=== PATIENT | male | born 1940 | race Caucasian/White ===

== ENCOUNTER 2021-05-18 09:21 | Emergency (ER) | payer MEDICARE, SELFPAY ==
[2021-05-18 09:42] VITALS: BP 182/83; PULSE 54; RESP 16; TEMP 36.8; O2SAT 100; BMI 25.8
--- NOTE | 2021-05-18 09:51 | DI.CT.S_ITS ---
PROCEDURE: CT HEAD/BRAIN WO CON INDICATIONS: double vision X 5 days TECHNIQUE: Noncontrast 4.5 mm thick angled axial sections acquired from the foramen magnum to the vertex, with coronal and sagittal reformats. For radiation dose reduction, the following was used: automated exposure control, adjustment of mA and/or kV according to patient size. COMPARISON: None. FINDINGS: Image quality: Excellent. CSF spaces: Basal cisterns are patent. No extra-axial fluid collections. The ventricles are symmetric in size and shape. Brain: No intracranial bleeds or masses. There is moderate cerebral volume loss for age, with resultant ventricular and sulcal prominence. There are moderate periventricular and deep white matter chronic small vessel ischemic changes. There is intracranial internal carotid artery atherosclerosis. Skull and face: Calvarium and visualized facial bones appear intact, without suspicious lesions. Sinuses: Visualized sinuses and mastoids are clear. IMPRESSION: 1. No acute intracranial abnormalities. A cause for double vision is not identified. Consider MRI and MRA for follow-up evaluation. 2. Cerebral volume loss and chronic microvascular ischemic changes. Dictated by: Kevin Saenz M.D. on 05/18/2021 at 10:48 Approved by: Kevin Saenz M.D. on 05/18/2021 at 10:56
--- NOTE | 2021-05-18 09:52 | DI.CT.S_ITS ---
PROCEDURE: CT ANGIO HEAD AND NECK INDICATIONS: vertigo TECHNIQUE: After the administration of intravenous contrast, 1 mm thick sections acquired from the aortic arch through the [place]. Post-contrast 4.5 mm thick sections then re-acquired from the foramen magnum to the vertex. 3-dimensional rlcxihm-jmfsdraqn-rzlrwakeyr (MIP) and/or volume rendering reformats were acquired of the central intracranial vasculature and neck separately. COMPARISON: [facility], CT, CT HEAD/BRAIN WO CON, 05/18/2021, 10:24. FINDINGS: Image quality: Excellent. BRAIN: CSF spaces: Ventricles are normal in size and shape. Basal cisterns are patent. No extra-axial fluid collections. Brain: No midline shift. No intracranial bleeds or masses. Weber-white matter interface appears intact. There is diffuse cerebral volume loss. There are periventricular and subcortical white matter chronic microvascular ischemic changes. Skull and face: Calvarium and facial bones appear intact, without suspicious lesions. Orbits appear normal. Sinuses: Sinuses and mastoids are clear. HEAD CT ANGIOGRAPHY: Anterior circulation: Intracranial internal carotid arteries are normal in flow. Atherosclerotic calcifications noted in the cavernous and clinoid segments of the internal carotid arteries bilaterally which causes mild stenosis of the vessels. The flow within the paired anterior cerebral arteries is normal and symmetric. The flow within the middle cerebral arteries is normal and symmetric. 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 The anterior communicating artery is seen. No aneurysms are seen. Posterior circulation: Visualized portions of the vertebral arteries demonstrate normal caliber, and join to form a normal appearing basilar artery. Flow within the posterior cerebral arteries is normal and symmetric. No aneurysms are seen. Dural sinuses demonstrate normal postcontrast enhancement. NECK CT ANGIOGRAPHY: Carotid system: The great vessels demonstrate bovine variant anatomy as they arise from the aortic arch. The origins of the common carotid arteries appear patent. The common carotid arteries demonstrate normal caliber and courses. Atherosclerotic calcifications noted in the origins of the internal carotid arteries bilaterally which causes less than 50% stenosis of the vessels Posterior circulation: Atherosclerotic plaque noted in the origins of the vertebral arteries which causes mild narrowing of the vessels. There is normal flow in the vertebral arteries.. The more superior extracranial portions of both vertebral arteries also demonstrate normal courses and calibers. They join to form a normal appearing basilar artery. Soft tissues: Visualized neck soft tissues demonstrate no suspicious abnormalities. Bones: No suspicious bony lesions. Spine degenerative disc disease and facet arthropathy. Visualized cervical spine appears normally aligned. IMPRESSION: 1. No acute intracranial disease process. 2. No large vessel occlusion, hemodynamically significant vascular stenosis, vascular dissection or aneurysm. Any quantitative measurements of stenosis were performed using NASCET criteria. Dictated by: Danika Mccarthy MD, PhD on 05/18/2021 at 10:54 Approved by: Danika Mccarthy MD, PhD on 05/18/2021 at 11:03
--- NOTE | 2021-05-18 09:55 | PC.NURSE ---
Pt has an area above left eye swollen and has a rash. Pt states pain is worse behind left eye.
[2021-05-18] MEDS: SODIUM CHLORIDE 0.9% 1,000 ML 150 ML IV (09:58)
[2021-05-18 10:10] LABS: Add Manual Diff / Slide Review NO; Basophils Absolute Auto 0 /uL (0-100); Basophils Percent Auto 0.5 % (0-2); Eosinophils Absolute Auto 100 /uL (0-450); Eosinophils Percent Auto 1.4 % (2-4); Hematocrit 37.1 % (41-53); Hemoglobin 12.6 g/dL (13.5-17.5); Lymphocytes Absolute Auto 1200 /uL (1100-4500); Lymphocytes Percent Auto 22.8 % (25-40); Mean Corpuscular Hemoglobin 27.3 PG (26-34); Mean Corpuscular Volume 80.2 fL (80-100); Monocytes Absolute Auto 600 /uL (0-900); Monocytes Percent Auto 10.7 % (3-14); Neutrophils Absolute Auto 3400 /uL (1500-7000); Neutrophils Percent Auto 64.6 % (50-75); Platelet Count 223 X10^3/uL (150-400); Red Blood Cell Count 4.62 X10^6/uL (4.5-5.9); Red Cell Distribution Width 15.9 % (11.6-14.8); White Blood Cell Count 5.2 X10^3/uL (4.5-11.0)
[2021-05-18 10:22] LABS: Alanine Aminotransferase 29 IU/L (<50); Albumin 3.9 g/dL (3.5-5.0); Albumin Globulin Ratio 1.3 (1.0-2.8); Alkaline Phosphatase 91 U/L (38-126); Aspartate Aminotransferase 47 IU/L (17-59); BUN Creatinine Ratio 28.4 (6-22); Bilirubin Total 0.8 mg/dL (0.2-1.3); Blood Urea Nitrogen 19 mg/dL (9-20); Calcium 8.9 mg/dL (8.4-10.2); Carbon Dioxide 27 mmol/L (22-32); Chloride 98 mmol/L (98-107); Estimated Glomerular Filt Rate > 60.0 mL/min (>60); Globulin 3.1 g/dL (1.7-4.1); Glucose 115 mg/dL (80-110); HEMOLYSIS < 15 (0-50); Potassium 3.7 mmol/L (3.4-5.1); Sodium 132 mmol/L (137-145)
--- NOTE | 2021-05-18 12:57 | ED_ITS ---
HPI - Headache General Chief Complaint: Headache Stated Complaint: Headache/double vision 5 days,swollen eye Time Seen by Provider: 05/18/21 09:51 Mode of arrival: Ambulatory Limitations: no limitations History of Present Illness HPI Narrative: 81-year-old gentleman with no significant medical problems lives on [facility] much of the [place] presents after 5 days of left eye rash with concurrent double vision. He describes moderate headache, no fevers no significant malaise. The double vision is benign ocular and not associated with other visual complaints. He has had no recent chest pain, dyspnea, cough, abdominal pain, dysuria, diarrhea or constipation. He notes specifically he has had chickenpox and he did receive zoster vaccination but it has been a number of years since his vaccination Related Data Previous Rx's Medication Instructions Recorded oxycodone-acetaminophen 5 mg-325 1 tab PO Q6H PRN #12 tab 05/18/21 mg tablet valacyclovir 1 gram tablet 1,000 mg PO TID #21 tab 05/18/21 Allergies Allergy/AdvReac Type Severity Reaction Status Date / Time No Known Drug Allergies Allergy Verified 05/18/21 09:46 Review of Systems Review of Systems Narrative: Remainder of complete review of systems is otherwise unremarkable except for that included in the HPI. Patient History Medical History Zoster Social History Smoking Status: Former smoker Smoking Status: Former smoker alcohol intake frequency: 0-2 drinks per day Substance Use Type: does not use Exam Narrative Exam Narrative: General: Healthy appearing, in no acute distress. Able to give a complete and coherent history. Well-nourished well-developed HEENT: Moist mucous membranes, normal sclera with reactive pupils, no corneal abnormalities. He does have a rash in a V1 distribution on the left side with mild edema and fullness of the left brow and left eyelid. Erythematous base fascicular lesions and crusting lesions are appreciated. The rash does not extend to the tip of his nose and does not involve the actual eyelid itself. Neck: No JVD, supple Respiratory: Lungs are clear to auscultation, no wheezing no rales no rhonchi. Full and symmetrical air movement Cardiac: Regular rate and rhythm no murmurs no bruits Abdomen: Soft, nontender, good bowel tones, no flank pain Skin: Warm and dry, no rashes Neurologic: Grossly neurologically intact with no obvious asymmetries or abnormalities Extremities: No trauma, well perfused Psych: Cooperative, appropriate insight and affect Initial Vital Signs Initial Vital Signs: Vital Signs Temperature 98.2 F 05/18/21 09:42 Pulse Rate 54 L 05/18/21 09:42 Respiratory Rate 16 05/18/21 09:42 Blood Pressure 182/83 H 05/18/21 09:42 Pulse Oximetry 100 05/18/21 09:42 Course Orders Ordered: Discontinued Medications Acetaminophen (Acetaminophen 325 Mg Tablet) 325 mg PO NOW ONE Stop: 05/18/21 13:32 Last Admin: 05/18/21 13:38 Dose: 325 mg Documented by: CARLITA Acyclovir (Acyclovir 200 Mg Capsule) 800 mg PO NOW ONE Stop: 05/18/21 13:32 Last Admin: 05/18/21 13:37 Dose: 800 mg Documented by: CARLITA Sodium Chloride (Normal Saline 0.9%) 1,000 mls @ 150 mls/hr IV CONT URIEL Last Infusion: 05/18/21 14:11 Dose: 150 mls/hr Documented by: Admin: 05/18/21 09:58 Dose: 150 mls/hr Documented by: KENISHA Ibuprofen (Ibuprofen 400 Mg Tablet) 400 mg PO NOW ONE Stop: 05/18/21 13:32 Last Admin: 05/18/21 13:37 Dose: 400 mg Documented by: CARLITA Vital Signs Vital signs: Vital Signs - 8 hr 05/18/21 14:12 Pulse Rate 78 Respiratory Rate 16 Blood Pressure 208/95 H Pulse Oximetry 98 MDM - Headache Lab Data Result diagrams: 05/18/21 10:05 05/18/21 10:05 Labs: Lab Results 05/18/21 05/18/21 Range/Units 10:05 10:05 WBC 5.2 (4.5-11.0) X10^3/uL RBC 4.62 (4.5-5.9) X10^6/uL Hgb 12.6 L (13.5-17.5) g/dL Hct 37.1 L (41-53) % MCV 80.2 (80-100) fL MCH 27.3 (26-34) PG MCHC 34.0 (30-36) % RDW 15.9 H (11.6-14.8) % Plt Count 223 (150-400) X10^3/uL Neut % (Auto) 64.6 (50-75) % Lymph % (Auto) 22.8 L (25-40) % [place] % (Auto) 10.7 (3-14) % Eos % (Auto) 1.4 L (2-4) % Baso % (Auto) 0.5 (0-2) % Neut # (Auto) 3400 (3572-0330) /uL Lymph # (Auto) 1200 (2257-0626) /uL [place] # (Auto) 600 (0-900) /uL Eos # (Auto) 100 (0-450) /uL Baso # (Auto) 0 (0-100) /uL Sodium 132 L (137-145) mmol/L Potassium 3.7 (3.4-5.1) mmol/L Chloride 98 (98-107) mmol/L Carbon Dioxide 27 (22-32) mmol/L BUN 19 (9-20) mg/dL Creatinine 0.67 (0.66-1.25) mg/dL Estimated GFR > 60.0 (>60) mL/min BUN/Creatinine Ratio 28.4 H (6-22) Glucose 115 H (80-110) mg/dL Calcium 8.9 (8.4-10.2) mg/dL Total Bilirubin 0.8 (0.2-1.3) mg/dL AST 47 (17-59) IU/L ALT 29 (<50) IU/L Alkaline Phosphatase 91 (38-126) U/L Total Protein 7.0 (6.3-8.2) g/dL Albumin 3.9 (3.5-5.0) g/dL Globulin 3.1 (1.7-4.1) g/dL Albumin/Globulin Ratio 1.3 (1.0-2.8) Imaging Data CT scan - head: Radiologist's Impression: FINDINGS: Image quality: Excellent. CSF spaces: Basal cisterns are patent. No extra-axial fluid collections. The ventricles are symmetric in size and shape. Brain: No intracranial bleeds or masses. There is moderate cerebral volume loss for age, with resultant ventricular and sulcal prominence. There are moderate periventricular and deep white matter chronic small vessel ischemic changes. There is intracranial internal carotid artery atherosclerosis. Skull and face: Calvarium and visualized facial bones appear intact, without suspicious lesions. Sinuses: Visualized sinuses and mastoids are clear. IMPRESSION: 1. No acute intracranial abnormalities. A cause for double vision is not identified. Consider MRI and MRA for follow-up evaluation. 2. Cerebral volume loss and chronic microvascular ischemic changes. Dictated by: Kevin Saenz M.D. on 05/18/2021 at 10:48 CTA head and neck: Radiologist's Impression: FINDINGS: Image quality: Excellent. BRAIN: CSF spaces: Ventricles are normal in size and shape. Basal cisterns are patent. No extra-axial fluid collections. Brain: No midline shift. No intracranial bleeds or masses. Weber-white matter interface appears intact. There is diffuse cerebral volume loss. There are periventricular and subcortical white matter chronic microvascular ischemic changes. Skull and face: Calvarium and facial bones appear intact, without suspicious lesions. Orbits appear normal. Sinuses: Sinuses and mastoids are clear. HEAD CT ANGIOGRAPHY: Anterior circulation: Intracranial internal carotid arteries are normal in flow. Atherosclerotic calcifications noted in the cavernous and clinoid segments of the internal carotid arteries bilaterally which causes mild stenosis of the vessels. The flow within the paired anterior cerebral arteries is normal and symmetric. The flow within the middle cerebral arteries is normal and symmetric. 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 The anterior communicating artery is seen. No aneurysms are seen. Posterior circulation: Visualized portions of the vertebral arteries demonstrate normal caliber, and join to form a normal appearing basilar artery. Flow within the posterior cerebral arteries is normal and symmetric. No aneurysms are seen. Dural sinuses demonstrate normal postcontrast enhancement. NECK CT ANGIOGRAPHY: Carotid system: The great vessels demonstrate bovine variant anatomy as they arise from the aortic arch. The origins of the common carotid arteries appear patent. The common carotid arteries demonstrate normal caliber and courses. Atherosclerotic ca lcifications noted in the origins of the internal carotid arteries bilaterally which causes less than 50% stenosis of the vessels Posterior circulation: Atherosclerotic plaque noted in the origins of the vertebral arteries which causes mild narrowing of the vessels. There is normal flow in the vertebral arteries.. The more superior extracranial portions of both vertebral arteries also demonstrate normal courses and calibers. They join to form a normal appearing basilar artery. Soft tissues: Visualized neck soft tissues demonstrate no suspicious abnormalities. Bones: No suspicious bony lesions. Spine degenerative disc disease and facet arthropathy. Visualized cervical spine appears normally aligned. IMPRESSION: 1. No acute intracranial disease process. 2. No large vessel occlusion, hemodynamically significant vascular stenosis, vascular dissection or aneurysm. Any quantitative measurements of stenosis were performed using NASCET criteria. Dictated by: Danika Mccarthy MD, PhD on 05/18/2021 at 10:54 ECG Data Interpretation: Sinus bradycardia rate of [address] T wave changes Normal axis MDM Narrative Medical decision making narrative: 81-year-old gentleman on day 5 of a V1 distribution zoster outbreak left side. He does report that he has had 2 prior strabismus surgeries. He notes that the benign ocular double vision got worse as the swelling over his eyebrow seem to worsen as well. Case is briefly reviewed with Dr. Almaz mancini, ophthalmology. CT scan of the head and CT of the head neck is entirely unremarkable. He has no signs and symptoms of stroke. Given the benign ocular vision changes concurrent with swelling associated with the V1 distribution zoster most likely explanation for his double vision is simply mechanical shifting of the globe secondary to the swelling from zoster. Alternative risks and benefits of starting valacyclovir at day 5 of zoster outbreak is reviewed and given the low side effect profile we opted to go ahead and treat with valacyclovir. He is given a prescription for Percocet should he developed severe pain. Patient is safe for return back to some [facility]. 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 Your CT scan does not suggest an acute stroke and the CT angiogram of your head neck does not show any impending vascular lesions either. Using 400 mg of ibuprofen (2 gjlj-[id number]-xvllufn pills) and 1 Tylenol every 6 hours can be very helpful in controlling pain. For severe pain using ibuprofen and 1 Percocet can be helpful. If you do choose to use the Percocet please recognize that narcotics can cause significant constipation so using a stool softener or extra fiber will be helpful I am going to suggest 7 days of valacyclovir. This is an antiviral medication that can reduce the complications of herpes type infections (chickenpox is a herpes type virus). Please keep track of your blood pressures as an outpatient. If the numbers remain significantly over 140/70, you need to review this with your primary care physician. If you have any worsening symptoms please feel free to return to the ER Prescriptions: New oxycodone-acetaminophen 5-325 mg tablet 1 tab PO Q6H PRN (Reason: pain) Qty: 12 RF: 0 valacyclovir 1 gram tablet 1,000 mg PO TID Qty: 21 RF: 0
--- NOTE | 2021-05-18 13:30 | PC.NURSE ---
Obtained patient care. Regine has prominent rash noted above left eye, consistent with shingles. Pain and double vision started approx 5 days ago. No fever noted.
[2021-05-18] MEDS: IBUPROFEN 400 MG TABLET PO (13:37)
[2021-05-18] MEDS: ACYCLOVIR 200 MG CAPSULE 800 MG PO (13:37)
[2021-05-18] MEDS: ACETAMINOPHEN 325 MG TABLET PO (13:38)
[2021-05-18 14:12] VITALS: BP 208/95; PULSE 78; RESP 16; O2SAT 98
== END 2021-05-18 14:15 | disposition home or self-care (01) ==
PROVIDERS: Emergency Provider Emergency Medicine
DX: I10 Essential (primary) hypertension (principal); B02.39 Other herpes zoster eye disease; R07.9 Chest pain, unspecified
CPT/HCPCS: 36415; 70450; 70496; 70498; 80053; 85025; 93005; 93010; 96360; 96361; 99284